=== PATIENT | female | born 1950 | race Caucasian/White ===

== ENCOUNTER 2016-04-16 13:49 | Emergency (ER) | payer OTHER ==
[~2016-04-16] VITALS: Wt 73.6 kg
[~2016-04-16 13:49] MED LIST: ASPI-664 PO; ATOR10TA65 PO; BENA20TA48 PO; GABA300C16 PO; HYDR12.58 PO; METF1000 PO; METO-448 PO
[2016-04-16] MEDS ORDERED: HYDR-906 PO (14:25)
[2016-04-16] MEDS ORDERED: IBUP-1542 PO (14:25)
--- NOTE | 2016-04-16 14:38 | ERD ---
ER Documentation Chief Complaint Date/Time DATE: 04/16/16 TIME: 14:34 Chief Complaint Right jaw pain HPI 65-year-old female history of type 2 diabetes history of fall on December 20, 2015 comes emergency room with right jaw pain over the last 1 day. She states it starts outside of her ear in the jaw region in the TMJ, worse when she chews , and radiates downward. She denies any dental pain, fevers, chills. She denies any headaches. No other trauma. So far she has been taking ibuprofen with mild relief. ROS All systems reviewed and are negative except as per history of present illness. Medications Home Meds Active Scripts Ibuprofen* (Motrin*) 600 Mg Tab, 600 MG PO Q6, #30 TAB Prov:PAVEL ALICIA PA-C 04/16/16 Hydrocodone/Acetaminophen (Bethune 5-325 Tablet) 1 Each Tablet, 1 TAB PO Q6H Y for PAIN, #15 TAB Prov:PAVEL ALICIA PA-C 04/16/16 Benazepril Hcl* (Benazepril Hcl*) 20 Mg Tablet, 20 MG PO DAILY, #30 TAB Prov:SANKET THORNTON MD 12/23/15 Aspirin* (Aspirin* EC) 81 Mg Tablet.dr, 162 MG PO DAILY, #30 Prov:SANKET THORNTON MD 12/23/15 Metoprolol Tartrate* (Lopressor*) 25 Mg Tab, 12.5 MG PO BID, #60 TAB Prov:SANKET THORNTON MD 12/23/15 Reported Medications Atorvastatin Calcium (Atorvastatin Calcium) 10 Mg Tablet, 10 MG PO QHS, #30 TAB 01/26/16 Metformin Hcl* (Metformin Hcl*) 1,000 Mg Tablet, 1000 MG PO WITH BREAKFAST DINNE , #30 TAB 12/20/15 Hydrochlorothiazide* (Hydrochlorothiazide*) 12.5 Mg Tablet, 12.5 MG PO DAILY, # 30 TAB 12/20/15 Gabapentin* (Gabapentin*) 300 Mg Capsule, 300 MG PO BID, #60 CAP 12/20/15 Allergies Allergies: Coded Allergies: No Known Allergy (Unverified , 01/26/16) PMhx/Soc History of Surgery: Yes Anesthesia Reaction: No Hx Neurological Disorder: Yes (NEUROPATHY) Hx Respiratory Disorders: No Hx Cardiac Disorders: Yes (HIGH B/P, HIGH CHOLESTEROL) Hx Psychiatric Problems: No Hx Miscellaneous Medical Probl: Yes (dm) Hx Alcohol Use: No Hx Substance Use: No Hx Tobacco Use: No Physical Exam Vitals Vital Signs Date Time Temp Pulse Resp B/P Pulse Ox O2 Delivery O2 Flow Rate FiO2 04/16/16 13:54 99.2 100 21 122/74 98 Physical Exam General: Well-developed, well-nourished. The patient appears in no acute distress. HEENT: Head is normocephalic, atraumatic. No scleral icterus. Bilateral ears are normal, TMJ tenderness on the right side is reproducible with jaw movement. She has full range of motion, teeth are intact, no dental abscess, oropharynx is clear, no exudate, no masses. Mastoids are nontender Neck: Supple. Nontender. No meningismus Lungs: Clear to auscultation. Normal air movement. Heart: Regular rate and rhythm. S1 and S2 are normal. No murmurs, gallops, or rubs. Abdomen: Nondistended. Extremities: No clubbing or cyanosis. Moving extremities x 4. No weakness. Neurologic: Alert and oriented 3. No focal deficits. Normal speech and gait. Skin: Normal turgor. No rash or lesions. Procedures/MDM MDM: 65-year-old female comes in right-sided jaw pain, exam and history is consistent with TMJ syndrome. Other differentials include, fracture, dislocation, parotitis, otitis media, otitis externa, mastoiditis, Ever angina , abscess, cellulitis, meningitis or deep space infection. Patient's vitals were reviewed, she is afebrile, does not show any signs of an infectious origin. Also she does have good range of motion, no trismus no evidence of a jaw dislocation. She will be given short course of Bethune as well as ibuprofen, and has been asked to follow-up with her primary care doctor. If symptoms not improved she may also follow-up with a dentist. Departure Diagnosis: Primary Impression: TMJ syndrome Condition: Good Patient Instructions: Tmj Syndrome Referrals: COMMUNITY CLINICS YOU HAVE RECEIVED A MEDICAL SCREENING EXAM AND THE RESULTS INDICATE THAT YOU DO NOT HAVE A CONDITION THAT REQUIRES URGENT TREATMENT IN THE EMERGENCY DEPARTMENT. FURTHER EVALUATION AND TREATMENT OF YOUR CONDITION CAN WAIT UNTIL YOU ARE SEEN IN YOUR DOCTORS OFFICE WITHIN THE NEXT 1-2 DAYS. IT IS YOUR RESPONSIBILITY TO MAKE AN APPOINTMENT FOR FOLOW-UP CARE. IF YOU HAVE A PRIMARY DOCTOR --you should call your primary doctor and schedule an appointment IF YOU DO NOT HAVE A PRIMARY DOCTOR YOU CAN CALL OUR PHYSICIAN REFERRAL HOTLINE AT IF YOU CAN NOT AFFORD TO SEE A PHYSICIAN YOU CAN CHOSE FROM THE FOLLOWING [facility] [address] [facility] [address] [facility] [address] [facility] [address] [facility] [place] [address] [facility]. [facility] [address] [facility] [place] YOU HAVE RECEIVED A MEDICAL SCREENING EXAM AND THE RESULTS INDICATE THAT YOU DO NOT HAVE A CONDITION THAT REQUIRES URGENT TREATMENT IN THE EMERGENCY DEPARTMENT. FURTHER EVALUATION AND TREATMENT OF YOUR CONDITION CAN WAIT UNTIL YOU ARE SEEN IN YOUR DOCTORS OFFICE WITHIN THE NEXT 1-2 DAYS. IT IS YOUR RESPONSIBILITY TO MAKE AN APPOINTMENT FOR FOLOW-UP CARE. IF YOU HAVE A PRIMARY DOCTOR --you should call your primary doctor and schedule and appointment IF YOU DO NOT HAVE A PRIMARY DOCTOR YOU CAN CALL OUR PHYSICIAN REFERRAL HOTLINE AT . IF YOU CAN NOT AFFORD TO SEE A PHYSICIAN YOU CAN CHOSE FROM THE FOLLOWING [facility]: [facility] [address] [place] [address] [facility] [address] [place] [address] [facility] [address] [place] [address] [facility] DENTIST ([facility] walk in clinic) Additional Instructions: Llame al doctor MAANA y shaun ector TOM PARA DENTRO DE 1-2 ALCANTAR.Dgale a la secretaria que nosotros le instruimos hacer esta tom.Avise o llame si phan condicin se empeora antes de la tom. Regresa aqui si peor o no mejor. PAVEL ALICIA PA-C Apr 16, 2016 14:38
== END 2016-04-16 14:42 | disposition home or self-care (01) ==
LOC: E/R 13:49
DX: M26.621 Arthralgia of right temporomandibular joint (principal); E11.9 Type 2 diabetes mellitus without complications; Z79.84 Long term (current) use of oral hypoglycemic drugs; Z79.82 Long term (current) use of aspirin
CPT/HCPCS: 99283

== ENCOUNTER 2018-02-17 08:31 | Emergency (ER) | END 2018-02-17 11:13 | disposition home or self-care (01) ==